=== PATIENT | female | born 1945 | race Caucasian/White ===

== ENCOUNTER 2020-01-27 09:43 | Outpatient (CLI) | payer MEDICARE, SELFPAY ==
[2020-01-27 09:56] LABS: Hematocrit 35.2 % (35.0-42.0); Hemoglobin 11.5 g/dL (11.7-13.8); Mean Corpuscular HGB Conc 32.7 g/dL (32.0-36.0); Mean Corpuscular Hemoglobin 28.9 pg (27.0-31.0); Mean Corpuscular Volume 88.4 fL (78.0-102.0); Mean Platelet Volume 9.6 fl (9.2-11.8); Platelet Count Result 330 K/mm3 (150-420); Red Blood Count 3.98 M/mm3 (4.20-5.40); Red Cell Distribution Width 12.9 % (11.6-14.4); White Blood Count 8.3 K/mm3 (4.8-10.8)
[2020-01-27 10:52] LABS: Alanine Aminotransferase 24 U/L (14-59); Alkaline Phosphatase 106 U/L (46-116); Anion Gap 15.7 mmol/L (7-16); Aspartate Amino Transferase 15 U/L (15-37); Bilirubin,Total 0.4 mg/dL (0.00-1.00); Blood Urea Nitrogen 51 mg/dL (7-18); Carbon Dioxide 30 mmol/L (21-32); Chloride 105 mmol/L (98-108); Estimated Glomerular Filt Rate 19; Glucose 84 mg/dL (70-99); Osmolality Calculated 314 mOsm/kg (285-295); Potassium 4.7 mmol/L (3.5-5.1); Sodium 146 mmol/L (136-145); Total Protein 7.1 g/dL (6.4-8.2)
== END 2020-01-27 09:44 | disposition home or self-care (01) ==
LOC: CHSLAB 09:45
PROVIDERS: PCP Family Medicine; Visit Provider Family Medicine
DX: I10 Essential (primary) hypertension (principal)
CPT/HCPCS: 36415; 80053; 85027

== ENCOUNTER 2020-02-26 11:38 | Outpatient (CLI) | payer MEDICARE, SELFPAY ==
--- NOTE | ~2020-02-26 | US_ITS ---
EXAMINATION: US renal BI DATE: 02/26/2020 12:09 INDICATION: Chronic kidney disease stage III TECHNIQUE: Multiple ultrasound grayscale images of the kidneys were obtained. COMPARISON: CT abdomen and pelvis 10/07/2017 FINDINGS: The right kidney measures 9.1 x 4.4 x 3.9 cm. The left kidney measures 10.4 x 4.6 x 4.9 cm. The kidne ys demonstrate normal parenchymal echogenicity. There are cysts in left kidney measuring up to 2.8 cm . There is no hydronephrosis. The bladder is normal. IMPRESSION: 1. Normal kidney sizes. No hydronephrosis. Reviewed, dictated and finalized at location A.
== END 2020-02-26 11:39 | disposition home or self-care (01) ==
PROVIDERS: PCP Family Medicine; Visit Provider Internal Medicine Nephrology
DX: N18.3 Chronic kidney disease, stage 3 (moderate) (principal)
CPT/HCPCS: 76775

== ENCOUNTER → 2021-02-02 13:08 | Outpatient (CLI) | payer MEDICARE, SELFPAY ==
--- NOTE | ~2021-02-02 | DEXA_ITS ---
Bone Density Report Name: Noa García Age: 75 Sex: Female Ethnicity: White Date of : 1945 Indication: postmenopausal; screening for osteoporosis; parental hip fracture; height loss; hysterectomy; Referring Provider: Mackenzie Villanueva Study: Bone densitometry was performed. Exam Date: February 02, 2021 Accession number: [id number] Bone Density: Region BMD T-score Z-score Classification AP Spine (L1, L2, L4) 1.115 0.7 3.3 Normal Femoral Neck (Left) 0.672 -1.6 0.6 Osteopenia Total Hip (Left) 0.918 -0.2 1.7 Normal Femoral Neck (Right) 0.652 -1.8 0.4 Osteopenia Total Hip (Right) 0.874 -0.6 1.4 Normal Total Hip Mean 0.896 -0.4 1.6 Normal World Health Organization criteria for BMD impression classify patients as: Normal (T-score at or above -1.0), Osteopenia (T-score between -1.0 and -2.5), or Osteoporosis (T-score at or below -2.5). 10-year Fracture Risk(1): Major Osteoporotic Fracture 22% Hip Fracture 13% Reported Risk Factors: [place] (), Neck BMD=0.652, BMI=31.5, parental fracture (1) FRAX(R) Version 3.08. Fracture probability calculated for an untreated patient. Fracture probability may be lower if the patient has received treatment. Clinical Information Provided by Patient: Parent has had a hip fracture Has used the following medications: Vitamin D, Calcium, MTV Has the following medical conditions: Hysterectomy, stage 3 kidney disease Patient maximum height was 67.5 Menopause Age: 52 No regular weight bearing exercise Drinks caffeinated beverages Onset of menses at age 9 Number of children 3 Impression: The patient has low bone mass, based on the Right Femoral Neck T-score. The patient has an estimated ten-year risk of hip fracture of 13% and an estimated ten-year risk of major fracture of 22%, based on the WHO FRAX algorithm. The patient has risk factors, including: parental hip fracture. Discussion: BONE DENSITY IS LOW AT ONE OR MORE SKELETAL SITES. THE PATIENT'S BMD AND CLINICAL RISK FACTORS CONTRIBUTE TO THIS PATIENT'S HIGH RISK OF FRACTURE. This patient's lowest T-score is low at one or more skeletal sites. It meets the World Health Organization's (WHO) criteria for ?low bone mass? (T-score between -1.0 and -2.5). The patient's 10-year risk of hip fracture and 10 year risk of a major osteoporotic fracture as calculated by FRAX exceeds the threshold where pharmacological therapy is recommended by the National Osteoporosis Foundation (NOF). However, all treatment decisions require clinical judgment and consideration of individual patient factors, including patient preferences, comorbidities, previous drug use, risk factors not captured in the FRAX model (e.g., frailty, falls, vitamin D deficiency, increased bone turnover, interval significant decline in bone density) and p
== END ==
PROVIDERS: PCP Physician Assistant Medical; Visit Provider Physician Assistant Medical
DX: Z78.0 Asymptomatic menopausal state (principal); M85.852 Other specified disorders of bone density and structure, left thigh; M85.851 Other specified disorders of bone density and structure, right thigh
CPT/HCPCS: 77080

== ENCOUNTER → 2022-04-04 14:31 | Outpatient (CLI) | payer MEDICARE, SELFPAY ==
--- NOTE | ~2022-04-04 | XR_ITS ---
XR chest 2V DATE: 04/04/2022 14:41 INDICATION: Chronic cough TECHNIQUE: 2 views COMPARISON: 01/09/2017 chest 2 view FINDINGS: Normal heart size. There is mild aortic calcification and unfolding. No hilar or mediasti nal enlargement. No pulmonary infiltrate or consolidation, pulmonary vascular congestion or pleural effusion or pneumothorax. Diffuse osteopenia. IMPRESSION: No active cardiopulmonary disease Aortic atherosclerosis Reviewed, dictated and finalized at location B.
== END ==
PROVIDERS: PCP Family Medicine; Visit Provider Physician Assistant Medical
DX: R05.3 Chronic cough (principal); I70.0 Atherosclerosis of aorta
CPT/HCPCS: 71046

== ENCOUNTER 2022-10-10 08:46 | Outpatient (CLI) | payer MEDICARE, SELFPAY ==
[2022-10-10 09:18] LABS: Cholesterol 174 mg/dL (0-200); HDL Direct 49 mg/dL; Triglycerides 128 mg/dL (<150)
[2022-10-10 09:29] LABS: LDL Cholesterol Direct 75 mg/dL
== END 2022-10-10 08:47 | disposition home or self-care (01) ==
PROVIDERS: PCP Family Medicine; Visit Provider Nurse Practitioner Family
DX: I10 Essential (primary) hypertension (principal)
CPT/HCPCS: 36415; 80061

== ENCOUNTER → 2023-07-20 11:31 | Outpatient (CLI) | payer MEDICARE, SELFPAY ==
--- NOTE | ~2023-07-20 | XR_ITS ---
EXAMINATION: XR ankle LT min 3V, [id number] DATE: 07/20/2023 12:01 INDICATION: Pes planus at the left foot and left ankle joint effusion. TECHNIQUE: 1. Anteroposterior, mortise, additional oblique and lateral view of the left ankle were obtained. 2. Dorsoplantar, two oblique and lateral views of the left foot were obtained. COMPARISON: None. FINDINGS: Pes planus and hindfoot valgus. No fracture. Polyarticular osteoarthritis, moderate at the calcaneocu boid, talonavicular and a few tarsal metatarsal joints and mild at the left and the majority the citlalli ining joints in the left foot. No erosions to suggest inflammatory arthritis. Small Achilles and plan tar calcaneal spurs. Ankle joint effusion is present. The soft tissues are otherwise unremarkable. IMPRESSION: 1. 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 2. Mild osteoarthritis and ankle joint effusion at the left ankle. Reviewed, dictated and finalized at location A. IMPRESSION: 1. Pes planus and hindfoot valgus with mild to moderate polyarticular osteoarth ritis in the left foot. 2. Mild osteoarthritis and ankle joint effusion at the left ankle.
== END ==
PROVIDERS: PCP Family Medicine; Visit Provider Nurse Practitioner Family
DX: M21.42 Flat foot [pes planus] (acquired), left foot (principal); M25.472 Effusion, left ankle; M79.672 Pain in left foot; M19.072 Primary osteoarthritis, left ankle and foot
CPT/HCPCS: 73610; 73630

== ENCOUNTER 2024-05-21 10:35 | Emergency (ER) | payer MEDICARE, SELFPAY ==
[2024-05-21 10:44] VITALS: BP 116/70; PULSE 80; RESP 20; TEMP 36.6; O2SAT 98
--- NOTE | 2024-05-21 11:00 | ED.LOWEXIN ---
HPI - Extremity Injury (Lower) General Chief Complaint: Extremity Injury, Lower Stated Complaint: L FOOT PAIN Time Seen by Provider: 05/21/24 11:01 Source: patient Mode of arrival: ambulatory Limitations: no limitations History of Present Illness HPI Narrative: 78-year-old female presented for complaint of left foot pain worsening over the past 3 days. States last night the bed sheets hurt the foot. Endorses this morning she noted redness to the left great toe with mild swelling. Denies injury. Has been able to ambulate with slight limp. Related Data Home Medications Medication Instructions Recorded Confirmed calcium citrate 315 mg 1 tablet PO DAILY 12/01/21 05/11/24 calcium-vitamin D3 6.25 mcg (250 unit) tablet (Citracal + Vitamin D Maximum) cholecalciferol (vitamin D3) 125 125 mcg PO DAILY 12/01/21 05/11/24 mcg (5,000 unit) capsule Allergies Allergy/AdvReac Type Severity Reaction Status Date / Time No Known Allergies Allergy Mild Verified 05/08/24 14:29 Review of Systems Review of Systems: CONSTITUTIONAL: Denies body aches, fever, chills CARDIOVASCULAR: Denies chest pain, palpitations, or edema. RESPIRATORY: Denies cough or dyspnea. GASTROINTESTINAL: Denies abdominal pain, nausea, vomiting, or diarrhea. SKIN: Denies rash, itching, or wounds. MUSCULOSKELETAL: Reports left foot pain Denies back pain, joint pain, or myalgia. NEUROLOGIC: Denies headache, numbness, tingling, or weakness. All systems reviewed & are unremarkable except as noted in HPI and below PMFSH Past Medical History Medical History BMI 28.0-28.9,adult BMI 29.0-29.9,adult BMI 30.0-30.9,adult Chronic kidney disease Hyperlipidemia Hypertension Osteopenia Surgical History Surgical History History of foot surgery Right Foot Family History Family History Father Family history of type 2 diabetes mellitus Acute myocardial infarction Heart disease Mother Hypertension Acute leukemia Macular degeneration CLL (chronic lymphocytic leukemia) Sibling Heart disease Social History Social History (Reviewed 05/21/24 @ 11:35 by CANELO [place] Smoking status: Never smoker Second hand tobacco smoke exposure: Yes Alcohol intake: current Substance use: never Substance use type: does not use Do You Feel Safe in your Home?: Yes Lack of Transportation: No Lack of Food: Never True Current Housing: I Have Housing Concerned About Future Housing: No Difficulty Paying Gas/Electric Bills: No Difficulty Paying for Meds: No Currently Unemployed: No Education: Associate Degree Living arrangements: alone Additional living arrangements comments: . Has 3 step children. Occupation/Education: retired Additional occupation/education comments: Prior Occupation: Registered Nurse Gender identity (if verbalized by the patient): Female Comments At time of signature, I have reviewed and agree with nursing past medical, surgical, social and family history unless otherwise noted. Please see nursing chart for further information. There is no relevant family history pertinent to the presenting complaint Exam Narrative: GENERAL: Well-appearing CHEST: Speaks in full sentences. No respiratory distress. HEART: Regular rate and rhythm. Normal and equal peripheral pulses. EXTREMITIES: Left foot has normal strength and sensation, limited range of motion of great due to pain with movement. Moderate swelling and erythema noted to 1st MTP, tender with light palpation. No ecchymosis, No open wounds, or obvious deformity; alignment normal, pulse palpable and equal bilaterally, skin warm, dry, pink. Capillary refill less than 3 seconds. SKIN: Warm, dry NEURO: Alert and oriented x3. PSYCH: Normal mood and affe
== END 2024-05-21 11:10 | disposition home or self-care (01) ==
PROVIDERS: Emergency Provider Nurse Practitioner Family; PCP Family Medicine
DX: M10.9 Gout, unspecified (principal); I12.9 Hypertensive chronic kidney disease with stage 1 through stage 4 chronic kidney disease, or unspecified chronic kidney disease; N18.9 Chronic kidney disease, unspecified; E78.5 Hyperlipidemia, unspecified; M85.80 Other specified disorders of bone density and structure, unspecified site
CPT/HCPCS: 99213; G0463

== ENCOUNTER 2025-05-07 09:56 | Outpatient (RCR) | payer MEDICARE, SELFPAY ==
--- NOTE | 2025-05-07 10:54 | OPREHPOC ---
Outpatient Therapy Plan of Care This is a Multidisciplinary Plan of Care that may contain components documented by all disciplines (PT, OT, and ST.) PT Problem 1 PT Problem #1 Knowledge Deficit PT Goal 1 Goal / Goal Update independent and compliant with HEP Target Visit 4 PT Problem 2 PT Problem #2 Pain PT Goal 1 Goal / Goal Update patient to report 4/10 or less pain at worst in the L foot/ankle Target Visit 8 PT Problem 3 PT Problem #3 Impaired Strength PT Goal 1 Goal / Goal Update improve L ankle strength 4+/5 or better overall Target Visit 8 PT Problem 4 PT Problem #4 Impaired Range of Motion PT Goal 1 Goal / Goal Update achieve 15 degrees active L ankle DF achieve 45 degrees active L ankle PF achieve 5 degrees active L ankle IV Target Visit 8 PT Problem 5 PT Problem #5 Impaired Functional Mobility PT Goal 1 Goal / Goal Update patient to ambulate with equal step/stride length bilaterally. patient to ambulate up and down steps with reciprocal mechanics. LEFS to display 25% or less functional deficits Target Visit 8
--- NOTE | 2025-05-07 10:54 | PTOPEVAL1 ---
Assessment and note entered by JT File, PT Evaluation Information Assessment Status Evaluation Diagnosis L ankle ICD-10 Condition Codes (PT) Pain in left ankle and joints of left foot M25.572 Onset 04/15/25 Subjective Information patient reports she is having issues with the L foot/ankle. she reports she has a history of surgery on the R foot for a similar issue with ankle/foot pain. she eventually had to have surgery to stabilize the R ankle. she reports the L ankle hurts with weight bearing. she reports has had xrays recently that show degeneration of the foot arch. she reports she has difficulty with walking to her mailbox to get the mail. she reports walking on gravel to get the mail makes things worse, and she has difficulty with stair ambulation. she reports she has pain that is located to the L ankle and the arch of the L foot. she reports she is trying to avoid having surgery on the L foot/ankle. Reported Pain Level Pain Score 0: Self Report Assessment PT Clinical Summary mrs. ba is an 79 yo woman who presents to skilled PT services for evaluation of L foot/ankle pain. 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 this has altered her gait, and causes pain throughout her day with standing activities. continued skilled PT is indicated to address her objective/functional deficits and progress towards a return to her prior level functional activity performance/ quality of life in the hopes to avoid foot/ankle surgery. Plan of Care Interventions Gait Training,Hot Pack/Cold Pack,Manual Therapy, Neuro Re-education,Patient/Caregiver Education, Therapeutic Activities,Therapeutic Exercise PT Services Indicated Yes Treatment Frequency and 2x weekly for 8 visits Duration These treatments will address the objective and functional deficits as defined above. The patient will be advanced safely and appropriately in order for the patient to progress towards his/her prior level of function. Additional exercises will be introduced and as well as a comprehensive home exercise program upon discharge, if needed, ?to ensure carryover of functional gains achieved in the clinic. This treatment plan has been reviewed and agreement upon by the patient.
--- NOTE | 2025-05-29 13:58 | OPREHPOC ---
Outpatient Therapy Plan of Care This is a Multidisciplinary Plan of Care that may contain components documented by all disciplines (PT, OT, and ST.) PT Problem 1 PT Problem #1 Knowledge Deficit PT Goal 1 Goal / Goal Update independent and compliant with HEP Target Visit 4 Progress Met PT Problem 2 PT Problem #2 Pain PT Goal 1 Goal / Goal Update patient to report 4/10 or less pain at worst in the L foot/ankle Target Visit 8 Progress Met PT Problem 3 PT Problem #3 Impaired Strength PT Goal 1 Goal / Goal Update improve L ankle strength 4+/5 or better overall - met except for inversion strength Target Visit 8 Progress Partially Met PT Problem 4 PT Problem #4 Impaired Range of Motion PT Goal 1 Goal / Goal Update achieve 15 degrees active L ankle DF achieve 45 degrees active L ankle PF achieve 5 degrees active L ankle IV Target Visit 8 Progress Not Met PT Problem 5 PT Problem #5 Impaired Functional Mobility PT Goal 1 Goal / Goal Update patient to ambulate with equal step/stride length bilaterally. -met patient to ambulate up and down steps with reciprocal mechanics. -met LEFS to display 25% or less functional deficits - not met Target Visit 8 Progress Partially Met
--- NOTE | 2025-05-29 13:58 | PTOPDC ---
Assessment and note entered by Aye Irvin, PT Evaluation Information Assessment Status Discharge Diagnosis L ankle ICD-10 Condition Codes (PT) Pain in left ankle and joints of left foot M25.572 Onset 04/15/25 Subjective Information Luis denies L foot/ankle pain today and feels ready to discharge from therapy. She does still experience pain when walking to her mailbox and going up the stairs but the pain is not as severe. Her home doesn't have steps, however when she goes to [facility] she does take the steps to get inside. She also states she is getting new orthotic insoles soon to help support her arch more. Reported Pain Level Pain Score 0: Self Report Assessment PT Clinical Summary Mrs. García has attended 8 skilled PT visits for L ankle/foot pain. She notes an improvement in her L ankle pain when ambulating to the mailbox and climbing stairs. Her L ankle AROM is relatively unchanged from initial eval but her strength has improved overall. She has been independent with her HEP and has partially met her therapeutic goals, and she feels capable of continuing to make further progress on her own outside of therapy. Plan of Care PT Services Indicated No
== END 2025-05-29 16:49 | disposition home or self-care (01) ==
LOC: CHSPT 09:56
DX: M25.572 Pain in left ankle and joints of left foot (principal); M79.672 Pain in left foot; M76.829 Posterior tibial tendinitis, unspecified leg; M21.962 Unspecified acquired deformity of left lower leg; G89.29 Other chronic pain
CPT/HCPCS: 97110; 97112; 97161

== ENCOUNTER 2025-10-14 10:48 | Outpatient (CLI) | payer MEDICARE, SELFPAY ==
--- NOTE | 2025-10-29 12:13 | WPDHOLTEREM ---
Holter/Event Monitor Holter/Event Monitor Date of procedure: 10/14/25 Holter/Event Procedure: 3-7 Day Holter Monitor Indications: Tachycardia Conclusion: 1. 3 days holter monitor on 10/14/25. 2. Predominant rhythm is sinus rhythm. HR range 49-187 bpm; average HR 88 bpm. 3. There are rare premature supraventricular complexes, rare supraventricular couplets, and rare supraventricular triplets. There are 38 episodes of supraventricular tachycardia with fastest at 182 bpm and longest lasting 7 beats. There are intermittent episodes of atrial fibrillation with total burden of o13% with HR range 74-187 bpm and longest lasting 6 hours and 42 minutes. 4. There are occasional premature ventricular complexes, rare ventricular couplets, and longest ventricular trigeminy was 5.1 seconds. No ventricular tachycardia. 5. No significant pauses greater than 3 seconds. 6. No symptoms available for correlation.
== END 2025-10-14 10:49 | disposition home or self-care (01) ==
LOC: ANHCARD 10:51
PROVIDERS: PCP Family Medicine; Visit Provider Physician Assistant Medical
DX: I47.10 Supraventricular tachycardia, unspecified (principal); I49.1 Atrial premature depolarization; I48.91 Unspecified atrial fibrillation; I49.3 Ventricular premature depolarization; R00.8 Other abnormalities of heart beat
CPT/HCPCS: 93242